=== PATIENT | male | born 1970 | race Hispanic/Latino ===

== ENCOUNTER → 2018-07-19 | Outpatient (CLI) | payer OTHER ==
--- NOTE | 2018-07-20 07:28 | Diagnostic Imaging Report ---
EXAM: US ABDOMEN COMPLETE INDICATION: Lower abdominal pain. COMPARISON: None TECHNIQUE: Transverse and longitudinal wadsworth scale and color doppler sonographic images of the upper abdomen were obtained. FINDINGS: LIVER Measures 14.7 cm in the right midclavicular line. Normal echogenicity of the liver with normal contour, no masses. SPLEEN Measures 8.9 cm in maximum diameter. Normal echogenicity, no masses. GALLBLADDER No gallbladder wall thickening, distension, stone, or pericholecystic fluid. Negative reported sonographic Hicks's sign. BILE DUCTS No intra nor extra-hepatic biliary dilation. Common bile duct measures 0.2 cm PANCREAS: Limited visualization. RIGHT KIDNEY: 11.6 cm Echogenicity: Normal Collecting System: No hydronephrosis Stones: None Cyst/Mass: None LEFT KIDNEY: 9.8 cm Echogenicity: Normal Collecting System: No hydronephrosis Stones: None Cyst/Mass: None VESSELS: Aorta: Visualized portions are within normal size limits Inferior Vena Cava: Visualized portions are normal Main Portal Vein: 1.0 cm, normal size with hepatopetal flow. FREE FLUID: None IMPRESSION: No acute sonographic abnormality. Signed by: Dr. Christiano Cruz MD on 07/20/2018 7:25 AM
== END ==
LOC: US 17:06
PROVIDERS: ATTEND Internal Medicine
DX: R10.30 Lower abdominal pain, unspecified (principal)
CPT/HCPCS: 76700